=== PATIENT | male | born 1940 | race Caucasian/White ===

== ENCOUNTER 2020-10-27 01:13 | Emergency (ER) | payer OTHER ==
[~2020-10-27] VITALS: Ht 175.3 cm; Wt 113.4 kg
[2020-10-27] MEDS ORDERED: EPINEPHrine HCL 1 MG/10 ML SYRG IV ONE (01:14)
[2020-10-27] MEDS ORDERED: CALCIUM CHLOR(10%) 100MG/ML 10ML SYRINGE IV ONE (01:14)
[2020-10-27] MEDS ORDERED: SODIUM BICARBONATE 8.4% INJ 50ML SYRINGE IV ONE (01:14)
[2020-10-27] MEDS ORDERED: SUCCINYLCHOLINE CHLORIDE 20 MG/ML 10ML VIAL IV ONE (01:20)
[2020-10-27 06:28] VITALS: BP 0/0
== END 2020-10-27 09:05 | disposition expired ==
LOC: EDBD 01:13 → EDUNIT# 01:13 → ER 01:13
DX: I46.9 Cardiac arrest, cause unspecified (principal); I10 Essential (primary) hypertension; Z88.6 Allergy status to analgesic agent
CPT/HCPCS: 31500; 92950; 99291; J0171; J0330